=== PATIENT | male | born 1940 | race Asian ===

== ENCOUNTER 2018-07-23 15:26 | Emergency (ER) | payer OTHER, MEDICARE ==
[~2018-07-23] VITALS: Ht 165.1 cm; Wt 59.0 kg
[2018-07-23 15:26] VITALS: BP_SYST 116
--- NOTE | 2018-07-23 15:26 | NUR ---
Placed in room 01 . Placed on groundwater monitoring technician, blood pressure machine and pulse oximeter. To gown for exam. Side rails up.
--- NOTE | 2018-07-23 15:26 | NUR ---
PATIENT CAME IN WITH AGONAL BREATHING. PATIENT PUT IN BED AND HOOKED UP TO MONITOR. PATIENT HAD NO PULSE. CPR WAS STARTED.
--- NOTE | 2018-07-23 15:26 | NUR ---
STATED PATIENT FULL CODE.
[2018-07-23] MEDS ORDERED: EPINEPHrine JECT 1 MG/10 ML SYR IVP ONE (15:27)
--- NOTE | 2018-07-23 15:27 | NUR ---
I&O STARTED ON RIGHT RODRIGUEZ. Pt tolerated well. FLUIDS STARTED.
--- NOTE | 2018-07-23 15:34 | NUR ---
1 mg of epi given.
--- NOTE | 2018-07-23 15:38 | NUR ---
Patient full code. Patient medicated with 20 mg of etomidate for sedation prior to placement of ET tube. Respiratory therapy at bedside prior to placement. Size 7 ET tube placed by dr Ramirez. Cuff inflated with 10 cc air. Auscultation of breath sounds over bilateral chest wall. ET tube secured with 22 lip. O2 sats 100% pulse ox. PCXR ordered to check tube placement.
[2018-07-23] MEDS ORDERED: LEVOFLOXACIN 500 MG/D5W 100 ML IV ONE (15:45)
[2018-07-23] MEDS ORDERED: ALBUTEROL SULFATE 0.083% 2.5 MG/3 ML VIAL.NEB INH ONE (15:45)
--- NOTE | 2018-07-23 15:49 | NUR ---
Chel CLARK's to ICH.
--- NOTE | 2018-07-23 15:50 | NUR ---
# 16 FR Neville catheter with use of sterile technique. Immediate return of 0 cc Bedside drainage bag placed below level of bladder. Urine sample collected and sent to lab. Pt tolerated procedure well. Patient unable to toilet self.
--- NOTE | 2018-07-23 15:55 | NUR ---
FAMILY CALLED TO BEDSIDE TO SPEAK WITH DR VALVERDE
--- NOTE | 2018-07-23 16:02 | NUR ---
DR VALVERDE SPEAKING WITH DR ISA BLANCO FROM [facility], [facility] REQUESTS THAT WE SPOKE WITH THIS DOCTOR PRIOR TO TRANSPORTING PT TO [facility] FOR STEMI.
[2018-07-23] MEDS ORDERED: ETOMIDATE 20 MG/ 10 ML VIAL (AMIDATE) IVP ONE (16:09)
[2018-07-23] MEDS ORDERED: ASPIRIN 300 MG/SUPP.RECT SUPP RC ONE (16:15)
[2018-07-23] MEDS ORDERED: HEPARIN SODIUM,PORCINE 5000 UNITS/ML VIAL IVP ONE (16:15)
--- NOTE | 2018-07-23 16:26 | NUR ---
Patient to be transferred to [facility]. Is being transferred due to higher level of care. Receiving facility has accepting physician and available space. ER physician has signed transfer form. Patient or responsible green party has agreed to transfer and signed form. Patient belongings sent with patient. Copy of nursing notes, lab reports, EKG, Physicians Orders and X-rays to be sent with patient. Receiving physician is ARIS. Patient left to [facility].
[2018-07-23 16:28] LABS: BASOPHILS # (AUTO) 0.1 K/uL (0.0-0.2); BASOPHILS % (AUTO) 0.6 % (0.0-2.0); EOSINOPHILS % (AUTO) 0.5 % (0.0-4.0); HEMATOCRIT 36.8 % (36-54); HEMOGLOBIN 11.9 g/dL (14.0-18.0); LYMPHOCYTES # (AUTO) 1.3 K/uL (1.0-5.5); LYMPHOCYTES % (AUTO) 11.8 % (20.5-51.5); MEAN CORPUSCULAR HEMOGLOBIN 30 pg (27-31); MEAN CORPUSCULAR HGB CONC 32 % (32-36); MEAN CORPUSCULAR VOLUME 91 fL (79.0-98.0); MONOCYTES # (AUTO) 0.6 K/uL (0.0-1.0); MONOCYTES % (AUTO) 5.5 % (1.7-9.3); NEUTROPHILS # (AUTO) 8.7 K/uL (1.8-7.7); NEUTROPHILS % (AUTO) 81.6 % (40.0-70.0); PLATELET COUNT (AUTO) 172 K/uL (130-430); RED BLOOD CELL COUNT(AUTO) 4.03 MIL/uL (4.2-6.2); RED CELL DISTRIBUTION WIDTH 16.5 % (9.0-15.0); WHITE BLOOD COUNT (AUTO) 10.6 K/uL (4.8-10.8)
[2018-07-23] MEDS ORDERED: NACL 0.9% 1,000 ML IV ONE (16:30)
--- NOTE | 2018-07-23 16:31 | NUR ---
REPORT WAS CALLED TO LIBBY FERREIRA IN ER AT [facility].
[2018-07-23 16:33] LABS: INR 1.2 (0.80-1.20); PROTHROMBIN TIME 12.7 SECS (9.5-12.5)
[2018-07-23 16:36] LABS: ANION GAP 23 (5-15); CALCIUM 7.9 mg/dL (8.4-11.0); CHLORIDE 89 mmol/L (98-107); SODIUM SERUM 124 mmol/L (136-145)
[2018-07-23 16:40] LABS: POTASSIUM 6.1 mmol/L (3.5-5.1)
[2018-07-23 16:41] VITALS: BP_SYST 116
[2018-07-23 16:42] LABS: GLUCOSE 468 mg/dL (70-99)
[2018-07-23 16:43] LABS: UREA NITROGEN, BLOOD 133 mg/dL (8-21)
[2018-07-23 16:44] LABS: CREATININE 12.51 mg/dL (0.55-1.30)
[2018-07-23 16:49] LABS: ALANINE AMINOTRANSFERASE 85 U/L (12-78); ASPARTATE AMINOTRANSFERASE 242 U/L (10-37); TOTAL BILIRUBIN 0.6 mg/dL (0.0-1.0)
[2018-07-23 16:50] LABS: ALBUMIN 1.8 g/dL (3.4-4.8)
== END 2018-07-23 16:31 | disposition short-term general hospital (02) ==
LOC: SED 15:26
DX: I21.9 Acute myocardial infarction, unspecified (principal); I50.9 Heart failure, unspecified; E11.9 Type 2 diabetes mellitus without complications; Z95.1 Presence of aortocoronary bypass graft; Z88.0 Allergy status to penicillin
CPT/HCPCS: 31500; 36415; 36680; 51702; 71045; 80053; 82962; 83605; 83880; 84484; 85025; 85610; 87040; 92950; 93005; 96365; 96375; 99291; J0171; J1644; J1956; J3490